=== PATIENT | male | born 1985 | race African-American/Black ===

== ENCOUNTER 2017-05-27 12:09 | Emergency (ER) | payer SELFPAY ==
[2017-05-27 12:26] VITALS: BP 145/100
--- NOTE | 2017-05-27 13:10 | RAD ---
EXAM: Right shoulder 3 views. HISTORY: Right shoulder pain. COMPARISON: None. FINDINGS: No fractures are identified. Acromioclavicular and glenohumeral joint spaces and alignment are maintained. There is small calcified granuloma in the right upper lobe. IMPRESSION: 1. No fracture or malalignment.
[2017-05-27] MEDS ORDERED: CYCL10TA2 PO (13:26)
[2017-05-27] MEDS ORDERED: NAPR500T8 PO (13:26)
--- NOTE | 2017-05-27 13:26 | PHYS DOC ---
Past Medical History Past Medical History: Hypertension Past Surgical History: No Surgical History Alcohol Use: Rarely Drug Use: None Adult General Chief Complaint Chief Complaint: SHOULDER INJURY HPI HPI Patient is a 32 year old male who presents with right shoulder mild pain and spasms that began on Saturday which is 3 days ago after getting off work. 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 Patient denies any trauma. He states is currently taking a muscle relaxer and has a Lidoderm patch on which is helping. Review of Systems Review of Systems Constitutional: Denies fever or chills [] Musculoskeletal: Right shoulder pain with spasms Integument: Denies rash or skin lesions [] Neurologic: Denies headache, focal weakness or sensory changes [] Allergies Allergies Allergies Coded Allergies Type Severity Reaction Last Updated Verified No Known Drug Allergies 05/27/17 No Physical Exam Physical Exam Constitutional: Well developed, well nourished, no acute distress, non-toxic appearance. [] Skin: Warm, dry, no erythema, no rash. [] Back: No tenderness, no CVA tenderness. [] Extremities: Right shoulder with no obvious deformity. No tenderness on palpation of the right shoulder. Lidoderm patch noted on the right scapula. Full range of motion to the right shoulder including abduction and adduction as well as plantar flexion and dorsiflexion of the right forearm. Adequate radial medial and ulnar sensation to the right forearm. +2 right radial pulse. Cap refill less than 2 seconds the right fingers. Neurologic: Alert and oriented X 3, normal motor function, normal sensory function, no focal deficits noted. [] Psychologic: Affect normal, judgement normal, mood normal. [] Current Patient Data Vital Signs Vital Signs Date Time Temp Pulse Resp B/P (MAP) Pulse Ox O2 Delivery O2 Flow Rate FiO2 05/27/17 12:26 98.4 87 18 99 Room Air 98.4 EKG EKG [] Radiology/Procedures Radiology/Procedures [] Course & Med Decision Making Course & Med Decision Making Pertinent Labs and Imaging studies reviewed. (See chart for details) Patient is in the ED with right shoulder pain with spasms for the last 3 days. Right shoulder x-rays interpreted by radiologist are negative for any acute findings. Discharged with naproxen and Flexeril and instructed to continue using Lidoderm patches as needed for pain. Follow-up with orthopedic doctor in one week. Ice elevation encouraged. Dragon Disclaimer Dragon Disclaimer This electronic medical record was generated, in whole or in part, using a voice recognition dictation system. Departure Departure Impression: Primary Impression: Right shoulder strain Additional Impression: Muscle spasm of right shoulder Disposition: HOME, SELF-CARE Condition: STABLE Referrals: NO PCP (PCP) KATHLEEN RIVERA MD Follow up in one week Patient Instructions: Musculoskeletal Pain, Shoulder Sprain Additional Instructions: You were seen for right shoulder pain with muscle spasms. You could've sprained/ strain your right shoulder. Apply ice to the affected area. Take the prescribed medicines as needed for pain. Follow-up with the provided orthopedic doctor in one week if pain continues. Scripts Naproxen (NAPROXEN) 500 Mg Tablet.dr 1 TAB PO BID, #30 TAB 0 Refills Prov: STANISLAW MENDEZ APRN 05/27/17 Cyclobenzaprine Hcl (CYCLOBENZAPRINE HCL) 10 Mg Tablet 1 TAB PO TID, #30 TAB Prov: STANISLAW MENDEZ APRN 05/27/17 Problem Qualifiers Primary Impression: Right shoulder strain Encounter type: initial encounter Qualified Codes: S46.911A - Strain of unspecified muscle, fascia and tendon at shoulder and upper arm level, right arm , initial encounter STANISLAW MENDEZ APRN May 27, 2017 13:26
== END 2017-05-27 13:31 | disposition home or self-care (01) ==
LOC: ER 12:09
DX: S46.911A Strain of unspecified muscle, fascia and tendon at shoulder and upper arm level, right arm, initial encounter (principal); I10 Essential (primary) hypertension; X50.0XXA Overexertion from strenuous movement or load, initial encounter; Y93.89 Activity, other specified; Y92.89 Other specified places as the place of occurrence of the external cause; Y99.0 Civilian activity done for income or pay
CPT/HCPCS: 73030; 99284

== ENCOUNTER 2018-03-16 19:38 | Emergency (ER) | payer SELFPAY | END 2018-03-16 21:01 | disposition left against medical advice (07) | LOC: ER 21:01 | DX: M79.1 Myalgia (principal); Z53.21 Procedure and treatment not carried out due to patient leaving prior to being seen by health care provider ==